=== PATIENT | male | born 2000 | race Caucasian/White ===

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

== ENCOUNTER 2022-01-24 12:06 | Emergency (ER) | payer OTHER ==
[~2022-01-24] VITALS: Ht 167.6 cm; Wt 64.4 kg
[~2022-01-24 12:06] MED LIST changes: +DICLOFENAC SODI75 MG PO; +HYDROCODON-ACE1 EA10 PO
[2022-01-25] MEDS ORDERED: OMEPRAZOLE20 MG PO (16:23)
--- NOTE | 2022-01-26 13:55 | EKG ---
[facility] [address] [facility] [place], [place] [address] Signed Normal sinus rhythm Normal ECG No previous ECGs available Confirmed by ANALILIA MCRAE MD ([id number]) on 01/26/2022 1:55:07 PM Electronically Signed By: ANALILIA MCRAE MD 01/26/22 1355 PATIENT NAME: JOSE AVILA Electrocardiogram DATE OF : [birth year] PHYSICIAN: ANALILIA MCRAE MD REPORT #: [id number] REPORT IS CONFIDENTIAL AND NOT TO BE RELEASED WITHOUT AUTHORIZATION
== END 2022-01-24 13:30 | disposition other institution, planned readmission (95) ==
LOC: ED 12:06
DX: Z53.21 Procedure and treatment not carried out due to patient leaving prior to being seen by health care provider (principal)
CPT/HCPCS: 93005; 93010